=== PATIENT | male | born 1995 | race Caucasian/White ===

== ENCOUNTER 2017-10-18 14:44 | Emergency (ER) | payer SELFPAY, BC | END 2017-10-18 16:18 | disposition home or self-care (01) | LOC: M ED 14:44 | DX: S00.83XA Contusion of other part of head, initial encounter (principal); R68.84 Jaw pain; W19.XXXA Unspecified fall, initial encounter; Y92.89 Other specified places as the place of occurrence of the external cause; F17.210 Nicotine dependence, cigarettes, uncomplicated; Z87.81 Personal history of (healed) traumatic fracture | CPT/HCPCS: 70486 ==

== ENCOUNTER 2018-02-15 11:35 | Emergency (ER) | payer OTHER, BC ==
[2018-02-15] MEDS ORDERED: ISOVUE-370 76% 100ML VIAL (Q9967) As Ordered (11:52)
[2018-02-15 11:57] LABS: HEMATOCRIT 46.2 % (42.0-52.0); HEMOGLOBIN 15.9 g/dl (13.5-17.5); MEAN CORPUSCULAR HEMOGLOBIN 29.7 pg (27.0-33.0); MEAN CORPUSCULAR HGB CONC 34.4 g/dl (32.0-36.5); MEAN CORPUSCULAR VOLUME 86.2 fl (80.0-96.0); PLATELET COUNT, AUTOMATED 220 10^3/uL (150-450); RED BLOOD COUNT 5.36 10^6/uL (4.30-6.10); RED CELL DISTRIBUTION WIDTH 12.6 % (11.5-14.5); WHITE BLOOD COUNT 7.1 10^3/uL (4.0-10.0)
[2018-02-15 12:18] LABS: ANION GAP 3 MEQ/L (8-16); BLOOD UREA NITROGEN 12 MG/DL (7-18); CALCIUM LEVEL 9.1 MG/DL (8.5-10.1); CARBON DIOXIDE LEVEL 27 MEQ/L (21-32); CHLORIDE LEVEL 108 MEQ/L (98-107); CREATININE FOR GFR 1.16 MG/DL (0.70-1.30); GLUCOSE, FASTING 89 MG/DL (70-100); POTASSIUM SERUM 4.1 MEQ/L (3.5-5.1); SODIUM LEVEL 138 MEQ/L (136-145)
== END 2018-02-15 21:39 | disposition home or self-care (01) ==
LOC: M ED 21:39
DX: S20.212A Contusion of left front wall of thorax, initial encounter (principal); V43.52XA Car driver injured in collision with other type car in traffic accident, initial encounter; Y92.410 Unspecified street and highway as the place of occurrence of the external cause; F17.200 Nicotine dependence, unspecified, uncomplicated
CPT/HCPCS: Q9967

== ENCOUNTER → 2018-10-10 | Outpatient (CLI) | payer BC ==
[~2018-10-10] MED LIST: CYCL10TA PO; LIDO5DIS41 TD
== END ==
LOC: M OUTALCOH 09:10
PROVIDERS: ATTEND Psychiatry & Neurology Psychiatry
DX: Z13.9 Encounter for screening, unspecified (principal); F11.20 Opioid dependence, uncomplicated

== ENCOUNTER 2018-11-01 09:27 | Emergency (ER) | payer BC ==
[~2018-11-01] VITALS: Ht 180.3 cm; Wt 68.2 kg
[2018-11-01] MEDS ORDERED: CYCLOBENZAPRINE 10 MG TAB PO ONE (10:00)
[2018-11-01] MEDS ORDERED: KETOROLAC 60 MG/2 ML VIAL (J1885) IM ONE (10:00)
[2018-11-01] MEDS ORDERED: LIDO5DIS41 TD (10:36)
[2018-11-01] MEDS ORDERED: CYCL10TA PO (10:36)
[2018-11-01 10:45] VITALS: BP 128/69
== END 2018-11-01 10:47 | disposition home or self-care (01) ==
LOC: M ED 09:27
DX: M62.830 Muscle spasm of back (principal); W18.49XA Other slipping, tripping and stumbling without falling, initial encounter; Y92.89 Other specified places as the place of occurrence of the external cause; F17.200 Nicotine dependence, unspecified, uncomplicated
CPT/HCPCS: 96372; 99283; J1885

== ENCOUNTER 2018-11-14 08:00 | Outpatient (RCR) | payer BC | END 2018-11-16 | LOC: M OUTALCOH 08:00 | PROVIDERS: ATTEND Psychiatry & Neurology Psychiatry | DX: F12.10 Cannabis abuse, uncomplicated (principal); F14.10 Cocaine abuse, uncomplicated; F17.200 Nicotine dependence, unspecified, uncomplicated ==

== ENCOUNTER 2018-12-12 08:00 | Outpatient (RCR) | payer BC | END 2018-12-17 | LOC: M OUTALCOH 08:00 | PROVIDERS: ATTEND Psychiatry & Neurology Psychiatry | DX: F12.10 Cannabis abuse, uncomplicated (principal); F14.10 Cocaine abuse, uncomplicated; F17.200 Nicotine dependence, unspecified, uncomplicated ==

== ENCOUNTER 2019-01-02 07:59 | Outpatient (RCR) | payer BC | END 2019-01-16 | LOC: M OUTALCOH 07:59 | PROVIDERS: ATTEND Psychiatry & Neurology Psychiatry | DX: F12.10 Cannabis abuse, uncomplicated (principal); F14.10 Cocaine abuse, uncomplicated; F17.200 Nicotine dependence, unspecified, uncomplicated ==

== ENCOUNTER → 2019-02-16 | Outpatient (RCR) | payer BC | LOC: M OUTALCOH 01-24 08:28 | PROVIDERS: ATTEND Psychiatry & Neurology Psychiatry | DX: F12.10 Cannabis abuse, uncomplicated (principal); F14.10 Cocaine abuse, uncomplicated; F17.200 Nicotine dependence, unspecified, uncomplicated ==

== ENCOUNTER 2019-03-13 09:00 | Outpatient (RCR) | payer BC | END 2019-03-18 | LOC: M OUTALCOH 09:00 | PROVIDERS: ATTEND Psychiatry & Neurology Psychiatry | DX: F12.10 Cannabis abuse, uncomplicated (principal); F14.10 Cocaine abuse, uncomplicated; F17.200 Nicotine dependence, unspecified, uncomplicated ==

== ENCOUNTER → 2019-05-11 | Outpatient (CLI) | payer SELFPAY ==
[~2019-05-11] MED LIST changes: +HYDR-3363; +IBUP-1022 PO; +NAPR-837 PO
== END ==
LOC: M OUTALCOH 08:05
PROVIDERS: ATTEND Psychiatry & Neurology Psychiatry
DX: F12.10 Cannabis abuse, uncomplicated (principal); F14.10 Cocaine abuse, uncomplicated

== ENCOUNTER 2019-05-28 12:55 | Emergency (ER) | payer SELFPAY ==
[~2019-05-28] VITALS: Ht 180.3 cm; Wt 71.8 kg
[2019-05-28 12:55] VITALS: BP 123/66
[~2019-05-28 12:55] MED LIST changes: -HYDR-3363; -IBUP-1022 PO; -NAPR-837 PO
[2019-05-28] MEDS ORDERED: HYDR-3363 (13:08)
[2019-05-28] MEDS ORDERED: IBUP-1022 PO (13:54)
--- NOTE | 2019-05-28 14:43 | REP ---
Left knee series: Five views. History: Trauma. Findings: Five views of the left knee demonstrate fullness in the suprapatellar bursa consistent with a joint effusion. No fracture or subluxation is seen. Impression: Findings consistent with joint effusion. No fracture seen. Electronically Signed by Raman Rainey MD 05/28/2019 02:35 P
[2019-05-28] MEDS ORDERED: NAPR-837 PO (14:47)
== END 2019-05-28 15:25 | disposition home or self-care (01) ==
LOC: M ED 12:55
DX: S89.92XA Unspecified injury of left lower leg, initial encounter (principal); Y93.39 Activity, other involving climbing, rappelling and jumping off; Y92.009 Unspecified place in unspecified non-institutional (private) residence as the place of occurrence of the external cause; F17.210 Nicotine dependence, cigarettes, uncomplicated; Z79.899 Other long term (current) drug therapy

== ENCOUNTER 2019-06-29 10:27 | Outpatient (RCR) | payer SELFPAY ==
[~2019-06-29 10:27] MED LIST changes: +HYDR-3363; +IBUP-1022 PO; +NAPR-837 PO
== END 2019-07-19 ==
LOC: M OUTALCOH 10:27
PROVIDERS: ATTEND Psychiatry & Neurology Psychiatry
DX: F12.10 Cannabis abuse, uncomplicated (principal); F14.10 Cocaine abuse, uncomplicated; F17.200 Nicotine dependence, unspecified, uncomplicated

== ENCOUNTER → 2020-07-07 | Outpatient (CLI) | payer OTHER ==
[~2020-07-07] MED LIST changes: +CYCL-707 PO; -CYCL10TA PO
--- NOTE | 2020-07-07 17:46 | REP ---
INDICATION: PAIN COMPARISON: None. TECHNIQUE: AP, lateral views left forearm. FINDINGS: The osseous structures and joint spaces are intact and normal. There is no evidence for acute fracture or dislocation. Surrounding soft tissues are unremarkable. No subcutaneous emphysema or radiodense foreign body. IMPRESSION: Normal examination. No acute fracture or dislocation. <Electronically signed by Veto Zayas > 07/07/20 [id number]
== END ==
LOC: M WUC 17:32
PROVIDERS: ATTEND Physician Assistant
DX: M25.532 Pain in left wrist (principal)

== ENCOUNTER 2020-07-28 05:41 | Emergency (ER) | payer OTHER ==
[~2020-07-28] VITALS: Ht 180.3 cm; Wt 70.5 kg
[2020-07-28] MEDS ORDERED: PENI500T PO (05:44)
[2020-07-28] MEDS ORDERED: NORC1TAB7 PO (07:16)
[2020-07-28 07:24] VITALS: BP 123/71
== END 2020-07-28 07:36 | disposition home or self-care (01) ==
LOC: M ED 05:41
DX: K08.89 Other specified disorders of teeth and supporting structures (principal); Z79.2 Long term (current) use of antibiotics

== ENCOUNTER → 2020-08-26 | Outpatient (CLI) | payer SELFPAY ==
[~2020-08-26] MED LIST changes: +NORC1TAB7 PO; +PENI500T PO
== END ==
LOC: M LABCAHC 17:55
PROVIDERS: ATTEND Pediatrics
DX: Z11.59 Encounter for screening for other viral diseases (principal)

== ENCOUNTER → 2020-10-02 | Outpatient (CLI) | payer MEDICAID | LOC: M OUTALCOH 08:18 | PROVIDERS: ATTEND Psychiatry & Neurology Addiction Medicine | DX: F14.20 Cocaine dependence, uncomplicated (principal) ==

== ENCOUNTER 2020-10-15 11:20 | Outpatient (RCR) | payer MEDICAID | END 2020-10-19 | LOC: M OUTALCOH 11:20 | PROVIDERS: ATTEND Psychiatry & Neurology Psychiatry | DX: F14.20 Cocaine dependence, uncomplicated (principal); F15.10 Other stimulant abuse, uncomplicated; F12.10 Cannabis abuse, uncomplicated; F17.200 Nicotine dependence, unspecified, uncomplicated ==

== ENCOUNTER 2020-11-14 08:45 | Outpatient (RCR) | payer MEDICAID | END 2020-11-16 | LOC: M OUTALCOH 08:45 | PROVIDERS: ATTEND Psychiatry & Neurology Psychiatry | DX: F14.20 Cocaine dependence, uncomplicated (principal); F15.10 Other stimulant abuse, uncomplicated; F12.10 Cannabis abuse, uncomplicated; F17.200 Nicotine dependence, unspecified, uncomplicated ==

== ENCOUNTER 2020-12-12 08:45 | Outpatient (RCR) | payer MEDICAID | END 2020-12-17 | LOC: M OUTALCOH 08:45 | PROVIDERS: ATTEND Psychiatry & Neurology Psychiatry | DX: F14.20 Cocaine dependence, uncomplicated (principal); F15.10 Other stimulant abuse, uncomplicated; F12.10 Cannabis abuse, uncomplicated; F17.200 Nicotine dependence, unspecified, uncomplicated ==

== ENCOUNTER → 2021-03-30 | Outpatient (CLI) | payer MEDICAID | LOC: M OUTALCOH 10:05 | PROVIDERS: ATTEND Psychiatry & Neurology Psychiatry | DX: F15.20 Other stimulant dependence, uncomplicated (principal) ==

== ENCOUNTER 2021-04-13 13:47 | Outpatient (RCR) | payer MEDICAID | END 2021-04-18 | LOC: M OUTALCOH 13:47 | PROVIDERS: ATTEND Psychiatry & Neurology Psychiatry | DX: F15.20 Other stimulant dependence, uncomplicated (principal); F17.200 Nicotine dependence, unspecified, uncomplicated ==

== ENCOUNTER 2021-05-14 09:00 | Outpatient (RCR) | payer MEDICAID | END 2021-05-19 | LOC: M OUTALCOH 09:00 | PROVIDERS: ATTEND Psychiatry & Neurology Psychiatry | DX: F15.20 Other stimulant dependence, uncomplicated (principal); F17.200 Nicotine dependence, unspecified, uncomplicated ==

== ENCOUNTER → 2021-06-08 | Outpatient (REF) | payer MEDICAID | LOC: M OUTALCOH 18:34 → M LAB REF 18:34 | PROVIDERS: ATTEND Psychiatry & Neurology Psychiatry | DX: F15.20 Other stimulant dependence, uncomplicated (principal) ==

== ENCOUNTER 2021-06-15 10:30 | Outpatient (RCR) | payer MEDICAID | END 2021-06-18 | LOC: M OUTALCOH 10:30 | PROVIDERS: ATTEND Psychiatry & Neurology Psychiatry | DX: F15.20 Other stimulant dependence, uncomplicated (principal); F17.200 Nicotine dependence, unspecified, uncomplicated ==

== ENCOUNTER 2025-05-23 16:08 | Emergency (ER) | payer MEDICAID, OTHER ==
[~2025-05-23] VITALS: Ht 177.8 cm; Wt 66.8 kg
[~2025-05-23 16:08] MED LIST changes: -IBUP-1022 PO; +IBUP600T42 PO; +LIDO1ADH93 TD; -LIDO5DIS41 TD
[2025-05-23] MEDS: LIDOCAINE 2% W/EPINEPHrine 20 ML VIAL **PRES FREE INJ ONE (16:55)
[2025-05-23 18:31] VITALS: BP 119/88; TEMP 96.1; O2SAT 100
== END 2025-05-23 18:34 | disposition home or self-care (01) ==
LOC: EDBD 16:08 → M ED 16:08
DX: S51.811A Laceration without foreign body of right forearm, initial encounter (principal); Y92.9 Unspecified place or not applicable; Y93.9 Activity, unspecified; Y99.0 Civilian activity done for income or pay; W26.8XXA Contact with other sharp object(s), not elsewhere classified, initial encounter; Z79.1 Long term (current) use of non-steroidal anti-inflammatories (NSAID)